=== PATIENT | male | born 1980 | race Hispanic/Latino ===

== ENCOUNTER 2018-12-08 20:09 | Emergency (ER) | payer SELFPAY ==
[2018-12-08] MEDS ORDERED: HYDROcodone/Acetaminophen 5/325 mg Tablet ONE (20:35)
== END 2018-12-08 21:03 | disposition home or self-care (01) ==
LOC: ERS 20:09
DX: K08.89 Other specified disorders of teeth and supporting structures (principal)
CPT/HCPCS: 99282